=== PATIENT | female | born 1960 | race Caucasian/White ===

== ENCOUNTER 2020-08-30 20:33 | Inpatient (IN) | payer OTHER ==
[~2020-08-30] VITALS: Ht 167.6 cm; Wt 63.6 kg
[2020-08-30 20:54] LABS: BASO # 0.1 (0.0-0.2); BASO % 0.6 % (0.0-2.0); EOS # 0.2 (0.0-0.7); EOS % 2.7 % (0-4.0); GRAN # 4.9 (1.4-6.5); GRAN % 62.1 % (42.2-75.2); HEMATOCRIT 43.4 % (37.0-47.0); HEMOGLOBIN 13.9 g/dl (12.5-16.0); LYMPH % 25.4 % (20.0-51.0); MEAN CELL VOLUME 92 fl (80.0-100.0); MEAN CORPUSCULAR HEMOGLOBIN 30 pg (27.0-31.0); MEAN CORPUSCULAR HGB CONC 32 g/dl (33.0-37.0); MONO # 0.7 (0.1-0.6); MONO % 8.9 % (1.7-9.3); PLATELET COUNT 238 K/mm3 (130-400); RED BLOOD COUNT 4.71 M/mm3 (4.10-5.30); REDCELL DISTRIBUTION WIDTH-CV 13.1 % (11.5-14.5)
[2020-08-30 21:05] LABS: INR 1.1 (0.8-3.0); PROTHROMBIN TIME 12.5 SECONDS (9.7-12.8)
[2020-08-30 21:08] LABS: ALANINE AMINOTRANSFERASE 23 U/L (4-34); ALBUMIN 4.8 gm/dL (3.5-5.0); ALKALINE PHOSPHATASE 96 U/L (50-136); ANION GAP 12 mmol/L (7-16); AST,SGOT 26 U/L (15-37); BILIRUBIN,TOTAL 0.3 mg/dL (0.0-1.0); BLOOD UREA NITROGEN 16 mg/dL (7-17); CARBON DIOXIDE 26 mmol/L (22-30); CHLORIDE 104 mmol/L (98-107); CREATININE, serum 0.75 (0.52-1.25); GLUCOSE 123 mg/dL (74-106); SODIUM 141 mmol/L (137-145); TOTAL PROTEIN 9.1 gm/dL (6.4-8.2)
[2020-08-30 21:19] LABS: TROPONIN-I < 0.012 ng/mL (0.000-0.035)
[2020-08-30 23:03] LABS: MAGNESIUM 2.2 mg/dL (1.6-2.3); PHOSPHOROUS 4.4 mg/dL (2.5-4.5)
--- NOTE | 2020-08-31 00:47 | NUR ---
2315- ER ADMIT PER W/C. PT IS ALERT AND OX4. IV TO LT FA/AC. C/O RT SIDE WEAKNESS SINCE THURSDAY. STATES HAVING A HARD TIME ARTICULATING SENTENCES AND NOT BEING ABLE TO WRITE. GAIT STEADY AND NON SWAYING. NEURO INTACT. CTA HEAD AND NECK ORDERED AND DONE AROUND MIDNIGHT. BEDSIDE SWALLOW W NO PROBLEMS. HAS A HEADACHE, TYLENOL GIVEN. ASSESSMENT AND VITALS COMPLETE. POC DISCUSSED. WILL BE NPO AT 4AM FOR TESTING TODAY MRI AND ECO. NS RUNNING AT 100ML. PT TO CALL FOR SAFTEY WHEN AMBULATING, CALL LIGHT WI REACH. PT V/U.
[2020-08-31 04:21] VITALS: BP 107/63; PULSE 73; TEMP 98.5
--- NOTE | 2020-08-31 05:07 | NUR ---
RESTED THROUGH THE NIGHT AFTER TESTING DONE WO INCIDENT. NEURO INTACT. CTA HEAD AND NECK NEGATIVE. NPO FOR AM TESTING. NEEDS MET.
[2020-08-31 06:11] LABS: BASO # 0.1 (0.0-0.2); BASO % 0.9 % (0.0-2.0); EOS # 0.3 (0.0-0.7); EOS % 5.2 % (0-4.0); GRAN # 2.4 (1.4-6.5); GRAN % 43.1 % (42.2-75.2); LYMPH # 2.2 (1.2-3.4); LYMPH % 39.6 % (20.0-51.0); MEAN CELL VOLUME 90 fl (80.0-100.0); MEAN CORPUSCULAR HGB CONC 33 g/dl (33.0-37.0); MEAN PLATELET VOLUME 10.5 fl (7.4-10.4); MONO # 0.6 (0.1-0.6); MONO % 10.8 % (1.7-9.3); PLATELET COUNT 206 K/mm3 (130-400); RED BLOOD COUNT 4.09 M/mm3 (4.10-5.30)
[2020-08-31 06:15] LABS: CALCIUM 8.2 mg/dL (8.4-10.2); CHOLESTEROL RISK RATIO 4.6; CREATININE, serum 0.59 (0.52-1.25); HEMATOCRIT 36.6 % (37.0-47.0); HEMOGLOBIN 11.9 g/dl (12.5-16.0); MEAN CORPUSCULAR HEMOGLOBIN 29 pg (27.0-31.0); POTASSIUM 3.7 mmol/L (3.4-5.0)
--- NOTE | 2020-08-31 07:00 | NUR ---
Report received form HERNAN Barnes. PT in bed sleeping, will continue to monitor.
[2020-08-31 07:24] VITALS: BP 127/81; PULSE 72; TEMP 98.5
[2020-08-31 07:44] VITALS: BP 134/75; PULSE 90; TEMP 97.4
--- NOTE | 2020-08-31 08:13 | NUR ---
Assessment charted. IVF to LFA. Pt denies pain. Neuro checks R side is a bit weaker than the left but no facial deficits noted. Dr. Cueto called and verbalized changes to the report he noted from the CT last night, will call hospitalist with update and notified patient of call while in room. Will continue ot monitor.
--- NOTE | 2020-08-31 10:19 | NUR ---
PTescorted down to MRI by myself via w/roldan Harley in MRI aware and will notify me when finished.
[2020-08-31 11:35] LABS: COLLECTION METHOD CLEAN CATCH
[2020-08-31 11:43] LABS: PH 6 (5-8); SQUAMOUS EPITHELIAL 0-2 /hpf; URINE APPEARANCE Clear; URINE BACTERIA Rare /hpf; URINE BILIRUBIN Negative (NEGATIVE); URINE BLOOD Negative (NEGATIVE); URINE COLOR Straw; URINE GLUCOSE Negative (NEGATIVE); URINE KETONE Negative (NEGATIVE); URINE LEUKOCYTE ESTERASE Negative (NEGATIVE); URINE NITRATE Negative (NEGATIVE); URINE PROTEIN(semi-quant) Negative (NEGATIVE); URINE RBC None Seen /hpf; URINE UROBILINOGEN Negative (NEGATIVE)
[2020-08-31 12:57] VITALS: BP 154/82; PULSE 68; TEMP 97.6
--- NOTE | 2020-08-31 13:56 | NUR ---
Primary nurse was assisted with [id number] patient care by [employer] student Isidra Jean and [employer] instructor Asia Mcdowell MSN, RN.
[2020-08-31 16:48] VITALS: BP 144/80; PULSE 79; TEMP 98
--- NOTE | 2020-08-31 17:24 | NUR ---
Report given to HERNAN Guerrero who will resume care. PT continues to have minimal RLE weakness and R sided facial drooping very minimal but pt can tell it is there when looking in the mirror. Yolanda to reusme care.
--- NOTE | 2020-08-31 18:30 | NUR ---
patient is tearful and angry that her family had left and they cannot come back in to visit, explained the policy and she remains tearful, bedside shift report given to Molly RN, Vidhi RN director notified of patient being upset
[2020-08-31 20:26] VITALS: BP 149/76; PULSE 70; TEMP 97.7
--- NOTE | 2020-09-01 01:10 | NUR ---
PT TACHY INTO 130S. CHECKED ON HER SHE WAS UP IN BR VOMITING STATED SHE HAD A MIGRAINE. CALLED SAM VALERIO. ORDERING MEDS TO TREAT.
[2020-09-01 01:16] VITALS: BP 153/77; PULSE 73; TEMP 97.7
[2020-09-01 03:54] VITALS: BP 143/76; PULSE 71; TEMP 97.7
--- NOTE | 2020-09-01 05:15 | NUR ---
Pt resting after getting zofran and ibu through the night without any further incident. Needs met.
[2020-09-01 06:12] LABS: BASO % 0.5 % (0.0-2.0); EOS # 0.1 (0.0-0.7); EOS % 0.6 % (0-4.0); GRAN # 6.7 (1.4-6.5); GRAN % 81.8 % (42.2-75.2); HEMATOCRIT 38.4 % (37.0-47.0); HEMOGLOBIN 12.6 g/dl (12.5-16.0); LYMPH % 12.6 % (20.0-51.0); MEAN CELL VOLUME 91 fl (80.0-100.0); MEAN CORPUSCULAR HEMOGLOBIN 30 pg (27.0-31.0); MEAN CORPUSCULAR HGB CONC 33 g/dl (33.0-37.0); MEAN PLATELET VOLUME 10.4 fl (7.4-10.4); MONO # 0.3 (0.1-0.6); MONO % 3.8 % (1.7-9.3); PLATELET COUNT 216 K/mm3 (130-400); RED BLOOD COUNT 4.23 M/mm3 (4.10-5.30); REDCELL DISTRIBUTION WIDTH-CV 13.2 % (11.5-14.5)
[2020-09-01 06:19] LABS: CREATININE, serum 0.52 (0.52-1.25); POTASSIUM 3.9 mmol/L (3.4-5.0)
--- NOTE | 2020-09-01 07:00 | NUR ---
Report received from HERNAN Barnes. Pt in bed resting with eyes closed, will cnotinue to monitor.
[2020-09-01 07:56] VITALS: BP 148/82; PULSE 75; TEMP 97.7
[2020-09-01] MEDS ORDERED: PLAVIX 75MG TAB75 MG PO (09:03)
[2020-09-01] MEDS ORDERED: LIPITOR20 MG PO (09:03)
[2020-09-01] MEDS ORDERED: ASPIRIN E.C. 8181 MG PO (09:03)
[2020-09-01] MEDS ORDERED: AMOXICILLIN 8751 TAB PO (09:03)
[2020-09-01] MEDS ORDERED: NORVASC 5MG5 MG/TAB PO (09:04)
[2020-09-01] MEDS ORDERED: IMITREX 25MG TA25 MG PO (09:12)
--- NOTE | 2020-09-01 09:35 | NUR ---
Pt doing well today, anticipating discharge. Still has small amount of RUE weakness when gripping. Facial R side drooping is very minimal as well. INT to LFA. Will get discharge ready and continue to monitor.
--- NOTE | 2020-09-01 10:36 | NUR ---
Discharge teaching completed at this time. Pt received discharge packet, reviewed new meds, f/u appts, scripts, PT/OT/ST orders. INT dc'd, tip intact. Will leave with all belongings, escorted out by medical staff, to drive home, criteria met.
--- NOTE | 2020-09-01 10:57 | NUR ---
Nursing staff discharged patient prior to SW being able to conduct intake evaluation. SW was not notified of pending discharge.
== END 2020-09-01 10:45 | disposition home or self-care (01) | DRG 65 ==
LOC: COL.ER 20:33 → MEDICAL 21:57
PROVIDERS: Emergency Medicine; Nurse Practitioner Family; Physician Assistant; ADMIT Hospitalist
DX: I63.9 Cerebral infarction, unspecified (principal); G81.91 Hemiplegia, unspecified affecting right dominant side; I73.00 Raynaud's syndrome without gangrene; R47.81 Slurred speech; R47.1 Dysarthria and anarthria; R47.01 Aphasia; J32.9 Chronic sinusitis, unspecified; R03.0 Elevated blood-pressure reading, without diagnosis of hypertension; G43.909 Migraine, unspecified, not intractable, without status migrainosus
CPT/HCPCS: 99223-AI; 99239; A9585; G0378; J2405; J7030; Q9967

== ENCOUNTER → 2021-04-15 | Outpatient (CLI) | payer OTHER ==
[~2021-04-15] MED LIST: AMOXICILLIN 8751 TAB PO; ASPIRIN E.C. 8181 MG PO; IMITREX 25MG TA25 MG PO; LIPITOR20 MG PO; NORVASC 5MG5 MG/TAB PO; PLAVIX 75MG TAB75 MG PO
== END ==
LOC: COL.RAD 13:19
DX: I63.9 Cerebral infarction, unspecified (principal); G93.89 Other specified disorders of brain
CPT/HCPCS: A9585